=== PATIENT | male | born 1980 | race African-American/Black ===

== ENCOUNTER 2019-06-15 08:48 | Emergency (ER) | payer OTHER ==
[~2019-06-15] VITALS: Ht 185.4 cm; Wt 78.5 kg
[2019-06-15 09:13] VITALS: BP_SYST 123
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
--- NOTE | 2019-06-15 09:29 | NUR ---
ER at bedside examining patient.
--- NOTE | 2019-06-15 09:35 | NUR ---
Patient transported to radiology via ambulatory, accompanied by tech.
--- NOTE | 2019-06-15 09:51 | NUR ---
patient cameback from radiology department.
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
[2019-06-15 10:25] VITALS: BP_SYST 123
--- NOTE | 2019-06-15 10:25 | NUR ---
Patient given written and verbal discharge instructions and verbalizes understanding. ER MD discussed with patient the results and treatment provided. Patient in stable condition. ID arm band removed. Rx of naproxen given. Patient educated on pain management and to follow up with PMD. Pain Scale 0. Opportunity for questions provided and answered. Medication side effect fact sheet provided.
== END 2019-06-15 10:25 | disposition home or self-care (01) ==
LOC: SED 08:48
DX: S20.212A Contusion of left front wall of thorax, initial encounter (principal); F07.81 Postconcussional syndrome; V89.2XXA Person injured in unspecified motor-vehicle accident, traffic, initial encounter; Y93.89 Activity, other specified; Y92.89 Other specified places as the place of occurrence of the external cause; Y99.8 Other external cause status
CPT/HCPCS: 71100; 72040-TC; 99283